=== PATIENT | female | born 1955 | race Caucasian/White ===

== ENCOUNTER 2019-11-25 11:06 | Outpatient (CLI) | payer MEDICARE, BC, SELFPAY ==
--- NOTE | 2019-11-25 11:00 | US_ITS ---
WS: [id number] ULTRASOUND LEFT BREAST HISTORY: breast lump COMPARISON: None available. TECHNIQUE: 2-D and Doppler. Palpable area LEFT breast near 7-8 o'clock. Ultrasound is directed to the 7-8 o'clock region, 4 cm fr om the nipple. There is no soft tissue abnormality or mass identified. US/US breast LT limited* [id number] IMPRESSION: BI-RADS: 1-Negative FOLLOW-UP: 1 Year Follow-up By history provided patient had a recent mammogram. If these images become avai lable for review an addendum can be submitted.
== END 2019-11-25 11:07 | disposition home or self-care (01) ==
LOC: RAD 11:11
PROVIDERS: PCP Physician Assistant Medical; Visit Provider Nurse Practitioner
DX: N63.24 Unspecified lump in the left breast, lower inner quadrant (principal)
CPT/HCPCS: 76642

== ENCOUNTER 2025-03-16 08:00 | Oncology outpatient (recurring) (ONCR) | payer MEDICARE, OTHER, SELFPAY ==
[2025-03-08] MEDS: sodium chloride 0.9% 250 ML 75 ML IV (08:37)
[2025-03-08] MEDS: ferumoxytol (NON-ESRD) 510 MG in sodium chloride 0.9% (100 ml) 100 ML 351 MG IV (08:37)
[2025-03-08 09:17] VITALS: BP 155/71; PULSE 56; RESP 17; TEMP 37; O2SAT 96
[2025-03-16 08:08] VITALS: BP 146/80; PULSE 66; RESP 18; TEMP 36.1; O2SAT 96
[2025-03-16] MEDS: ferumoxytol (NON-ESRD) 510 MG in sodium chloride 0.9% (100 ml) 100 ML 351 MG IV (08:13)
[2025-03-16 08:47] VITALS: PULSE 70; RESP 16; TEMP 36.6
== END 2025-03-19 23:59 | disposition home or self-care (01) ==
PROVIDERS: PCP Nurse Practitioner; Visit Provider Internal Medicine
DX: D50.8 Other iron deficiency anemias; Z79.899 Other long term (current) drug therapy; Z53.9 Procedure and treatment not carried out, unspecified reason
CPT/HCPCS: 96365; J7050; Q0138